=== PATIENT | female | born 1945 | race Caucasian/White ===

== ENCOUNTER → 2018-05-14 | Outpatient (CLI) | payer MEDICARE, OTHER ==
[2018-05-14] MEDS: IOHEXOL 300MG/ML 150 ML BTL (11:22)
[2018-05-14] MEDS: SOD CHLORIDE 0.9% 100 ML (11:22)
== END | disposition home or self-care (01) ==
LOC: C/S 09:59
DX: R19.5 Other fecal abnormalities (principal)
CPT/HCPCS: 74177

== ENCOUNTER 2018-05-26 09:10 | Day surgery (SDC) | payer MEDICARE, OTHER ==
[2018-05-26] MEDS ORDERED: PROPOFOL 20 ML ×2 (10:17→12:27)
[2018-05-26] MEDS ORDERED: FENTAnyl 50 MCG/ML VIAL (10:19)
== END 2018-05-26 12:09 | disposition home or self-care (01) ==
LOC: GIL 09:10
DX: K29.30 Chronic superficial gastritis without bleeding (principal); D12.5 Benign neoplasm of sigmoid colon; K62.1 Rectal polyp; K64.8 Other hemorrhoids; K57.90 Diverticulosis of intestine, part unspecified, without perforation or abscess without bleeding; I10 Essential (primary) hypertension
CPT/HCPCS: 43239; 88305; 88312